=== PATIENT | female | born 1975 | race Caucasian/White ===

== ENCOUNTER 2018-10-09 10:21 | Emergency (ER) | payer OTHER ==
[~2018-10-09] VITALS: Ht 170.2 cm; Wt 80.7 kg
[2018-10-09 10:49] LABS: URINE BILIRUBIN NEGATIVE (Negative); URINE BLOOD 3+ (Negative); URINE CLARITY CLOUDY; URINE GLUCOSE-RANDOM* NEGATIVE (Negative); URINE KETONES NEGATIVE (Negative); URINE NITRITE-REFLEX NEGATIVE (Negative); URINE PROTEIN (DIPSTICK) 2+ (Negative); URINE SPECIFIC GRAVITY 1.015 (1.005-1.035); URINE UROBILINOGEN 0.2 E.U./dl (0.2-1.0)
[2018-10-09 10:52] LABS: URINE COLOR DARK YELLOW; URINE LEUKOCYTES-REFLEX 3+ (Negative)
[2018-10-09 10:58] LABS: URINE WBC-REFLEX >25 Many /HPF (0-5)
[2018-10-09 10:59] LABS: CASTS None Seen /LPF (None Seen); CRYSTALS None Seen /LPF (None Seen); SQUAMOUS None Seen /LPF (0-3)
[2018-10-09 11:09] LABS: ABSOLUTE NEUTROPHILS 8.5 thou/uL (1.4-8.2); BASOPHILS 0.4 % (0.0-2.0); EOSINOPHILS 0.5 % (0.0-3.0); HEMATOCRIT 33.7 % (37.0-47.0); HEMOGLOBIN 11.3 gm/dL (12.0-15.0); LYMPHOCYTES 9.9 % (24.0-44.0); MCH 28.6 pg (26.0-34.0); MCHC 33.5 g/dL (28.0-37.0); MCV 85.4 fL (80.0-100.0); MONOCYTES 2.8 % (1.0-8.0); PLATELET COUNT 260 thou/uL (150-400); POLYS 86.4 % (36.0-66.0); RBC 3.95 mil/uL (4.20-5.00); WBC 9.8 thou/uL (4.0-11.0)
[2018-10-09 11:17] LABS: CALCIUM 8.7 mg/dL (8.5-10.1); CREATININE 0.9 mg/dL (0.6-1.0); POTASSIUM 3.9 mmol/L (3.5-5.1)
[2018-10-09 11:23] LABS: ALBUMIN 3.4 g/dL (3.4-5.0); TOTAL BILIRUBIN 0.7 mg/dL (<0.1-1.0); TOTAL PROTEIN 7.6 g/dL (6.4-8.2)
[2018-10-09] MEDS ORDERED: ONDANSETRON HCL4 M2 PO (13:36)
[2018-10-09] MEDS ORDERED: NORCO 5-325 TA1 EACH PO (13:36)
[2018-10-09] MEDS ORDERED: BACTRIM DS TAB1 EACH PO (13:36)
[2018-10-09 13:47] VITALS: BP 97/54
== END 2018-10-09 14:01 | disposition home or self-care (01) ==
LOC: ER 10:21
PROVIDERS: Physician Assistant
DX: N12 Tubulo-interstitial nephritis, not specified as acute or chronic (principal); R11.2 Nausea with vomiting, unspecified

== ENCOUNTER 2021-07-16 08:16 | Emergency (ER) | payer OTHER ==
[~2021-07-16] VITALS: Ht 170.2 cm; Wt 70.3 kg
--- NOTE | ~2021-07-16 | EMS ---
[place] [address] EMS Patient Care Report Name: EDWIN ADAME Room #: DEP ADELSO Aguero#: [id number] Admission: 07/16/21 Attend Phys: Discharge: 07/16/21 Date of : 77 Report #: [id number] THIS REPORT FOR: //name// Report Transmitted: 07/19/2021 14:23 EMS Care Summary [place], [place]/[facility] Incident [id number] @ 07/16/2021 07:50 Incident Location [id number] [place] [address] Patient EDWIN ADAME Female, 45 Years 1975 Patient Address [id number] [place] [address] [address] [place] [address] Patient History None Reported, Patient Allergies No known allergies, Patient Medications None Reported, Chief Complaint cough Disposition Transported No Lights/Sunol Dispatch Reason Sick Person Transported To [facility] Narrative Arrived to locked lobby door. Took several minutes to gain access. Once inside pt apt we found pt standing in doorway, sweating and looking tired. Pt stated she had been sick for 2 weeks, feeling tired and with a productive cough. Pt [address] [address] EMS Patient Care Report Name: EDWIN ADAME Room #: DEP [facility].R.#: [id number] Admission: 07/16/21 Attend Phys: Discharge: 07/16/21 Date of : 77 Report #: [id number] stated she felt feverish although she had no thermometer. Pt was in a surgical mask upon our arrival. Pt stated she was not vaccinated. Pt placed on cot and secured with cot straps. Pt placed in back of unit and had 3M mask placed over her surgical mask. Pt transported without incident. Care to RN, triage. Initial Vitals @08:07P: 118,BP: 128/73,CO: 6,SpO2: 95, @08:06P: 123,R: 18,BP: 123/75,Pain: 0/10,GCS: 15,Temp: 98F,Glucose: 116,CO: 4,SpO2: 94,Revised Trauma: 12, Assessments @08:03MENTAL:Event Oriented,Place Oriented,Time Oriented,Person Oriented,SKIN:HEENT:Head/Face: No Abnormalities,Eyes: No Abnormalities,Neck/Airway: No Abnormalities,LUNG SOUNDS:Left Upper: No Abnormalities,Right Upper: No Abnormalities,Left Lower: No Abnormalities,Right Lower: No Abnormalities,ABDOMEN:Left Upper: No Abnormalities,Right Upper: No Abnormalities,Left Lower: No Abnormalities,Right Lower: No Abnormalities,PELVIS//GI:No Abnormalities,EXTREMITIES:Left Arm: No Abnormalities,Right Arm: No Abnormalities,Left Leg: No Abnormalities,Right Leg: No Abnormalities,PULSE:NEURO: Impression Cough Procedures @08:03 ALS Assessment Response: UnchangedSucceeded Timeline 07:48,Call Received 07:48,Dispatch Notified 07:50,Dispatched 07:53,En Route 07:56,On Scene 08:02,At Patient 08:03,ALS Assessment,Response: UnchangedSucceeded, 08:06,BP: 123/75 M,PULSE: 123,RR: 18 R,SPO2: 94 Ox,ETCO2: ,B,PAIN: 0,GCS: 15, 08:07,BP: 128/73 M,PULSE: 118,RR: R,SPO2: 95 Ox,ETCO2: ,BG: ,PAIN: ,GCS: , 08:09,Depart Scene 08:15,At Destination 08:20,Call Closed Disclaimer v1.1 Copyright 2020 [employer] This EMS Care Summary contains data elements from the applicable legal record [address] [address] EMS Patient Care Report Name: EDWIN ADAME [facility] [id number] Admission: 07/16/21 Attend Phys: Discharge: 07/16/21 Date of : [birth year] Report #: [id number] (which may be displayed differently). It is designed to provide pertinent information for the following purposes: continuity of care, clinical quality, and state data reporting. The complete legal record is available to ED staff and administrators of the receiving hospital in [employer]'s Patient Tracker. All data is provided "as is."
--- NOTE | ~2021-07-16 | EMS ---
[facility] [address] [place] [address] EMS Patient Care Report Name: EDWIN ADAME Room #: REG ADELSO Aguero#: [id number] Admission: 07/16/21 Attend Phys: Discharge: Date of : 77 Report #: [id number] THIS REPORT FOR: //name// Report Transmitted: 07/16/2021 08:03 EMS Care Summary [place], [place]/[facility] Incident [id number] @ 07/16/2021 07:50 Incident Location [id number] [place] [address] 115 Patient EDWIN ADAME Female, 45 Years 1975 Patient Address [id number] [place] [address] [address] [place] [address] Patient History None Reported, Patient Allergies No known allergies, Patient Medications None Reported, Chief Complaint cough Disposition Transported No Lights/Zoe Dispatch Reason Sick Person Transported To [facility] Narrative Arrived to locked lobby door. Took several minutes to gain access. Once inside pt apt we found pt standing in doorway, sweating and looking tired. Pt stated she had been sick for 2 weeks, feeling tired and with a productive cough. Pt [facility] [address] [place] [address] EMS Patient Care Report Name: EDWIN ADAME Room #: REG Laci#: [id number] Admission: 07/16/21 Attend Phys: Discharge: Date of : 77 Report #: [id number] stated she felt feverish although she had no thermometer. Pt was in a surgical mask upon our arrival. Pt stated she was not vaccinated. Pt placed on cot and secured with cot straps. Pt placed in back of unit and had 3M mask placed over her surgical mask. Pt transported without incident. Care to RN, triage. Initial Vitals @08:07P: 118,BP: 128/73,CO: 6,SpO2: 95, @08:06P: 123,R: 18,BP: 123/75,Pain: 0/10,GCS: 15,Temp: 98F,Glucose: 116,CO: 4,SpO2: 94,Revised Trauma: 12, Assessments @08:03MENTAL:Person Oriented,Time Oriented,Place Oriented,Event Oriented,SKIN:HEENT:Head/Face: No Abnormalities,Eyes: No Abnormalities,Neck/Airway: No Abnormalities,LUNG SOUNDS:Left Upper: No Abnormalities,Right Upper: No Abnormalities,Left Lower: No Abnormalities,Right Lower: No Abnormalities,ABDOMEN:Left Upper: No Abnormalities,Right Upper: No Abnormalities,Left Lower: No Abnormalities,Right Lower: No Abnormalities,PELVIS//GI:No Abnormalities,EXTREMITIES:Left Arm: No Abnormalities,Right Arm: No Abnormalities,Left Leg: No Abnormalities,Right Leg: No Abnormalities,PULSE:NEURO: Impression Cough Procedures @08:03 ALS Assessment Response: UnchangedSucceeded Timeline 07:48,Call Received 07:48,Dispatch Notified 07:50,Dispatched 07:53,En Route 07:56,On Scene 08:02,At Patient 08:03,ALS Assessment,Response: UnchangedSucceeded, 08:06,BP: 123/75 M,PULSE: 123,RR: 18 R,SPO2: 94 Ox,ETCO2: ,B,PAIN: 0,GCS: 15, 08:07,BP: 128/73 M,PULSE: 118,RR: R,SPO2: 95 Ox,ETCO2: ,BG: ,PAIN: ,GCS: , 08:09,Depart Scene 08:15,At Destination 08:20,Call Closed Disclaimer v1.1 Copyright 2020 [employer] This EMS Care Summary contains data elements from the applicable legal record [facility] [address] [place] [address] EMS Patient Care Report Name: EDWIN ADAME Room #: REG M.R.#: [id number] Admission: 07/16/21 Attend Phys: Discharge: Date of : 77 Report #: [id number] (which may be displayed differently). It is designed to provide pertinent information for the following purposes: continuity of care, clinical quality, and state data reporting. The complete legal record is available to ED staff and administrators of the receiving hospital in [employer]'s Patient Tracker. All data is provided "as is."
[~2021-07-16 08:16] MED LIST: BACTRIM DS TAB1 EACH PO; NORCO 5-325 TA1 EACH PO; ONDANSETRON HCL4 M2 PO
[2021-07-16 08:56] LABS: BASOPHILS 0.6 % (0.0-2.0); HEMATOCRIT 44.4 % (37.0-47.0); LYMPHOCYTES 14.6 % (24.0-44.0); MCH 30.1 pg (26.0-34.0); MCHC 33.8 g/dL (28.0-37.0); MCV 88.9 fL (80.0-100.0); MONOCYTES 7.6 % (1.0-8.0); PLATELET COUNT 329 thou/uL (150-400); POLYS 77.2 % (36.0-66.0); RDW 13.1 % (10.5-14.5); WBC 7.8 thou/uL (4.0-11.0)
[2021-07-16 09:03] LABS: CALCIUM 8.9 mg/dL (8.5-10.1); CREATININE 0.7 mg/dL (0.6-1.0); POTASSIUM 3.6 mmol/L (3.5-5.1)
[2021-07-16] MEDS ORDERED: AZITHROMYCIN500 MG PO (09:37)
[2021-07-16 10:57] VITALS: BP 140/89
== END 2021-07-16 10:57 | disposition home or self-care (01) ==
LOC: ER 08:16
PROVIDERS: Student in an Organized Health Care Education/Training Program
DX: U07.1 COVID-19 (principal); J12.82 Pneumonia due to coronavirus disease 2019; F17.200 Nicotine dependence, unspecified, uncomplicated; F12.90 Cannabis use, unspecified, uncomplicated